=== PATIENT | male | born 1960 | race Caucasian/White ===

== ENCOUNTER 2018-04-04 19:29 | Inpatient (IN) | payer OTHER ==
[~2018-04-04] VITALS: Ht 182.9 cm; Wt 85.0 kg
[~2018-04-04 19:29] MED LIST: Z.0.NO CURRENT MEDS
[2018-04-04 19:31] VITALS: BP 132/74; PULSE 64; RESP 16; TEMP 97.5; O2SAT 100
[2018-04-04] MEDS ORDERED: SODIUM CHLORID 0.9% 500 ML INJ 500 ML IV ONE (19:45)
[2018-04-04] MEDS ORDERED: SODIUM CHLORIDE 0.9% FLUSH 10 ML FLUSH IVF PRN (19:45)
[2018-04-04] MEDS ORDERED: ASPIRIN 81 MG CHEW TAB PO ONE (19:45)
--- NOTE | 2018-04-04 19:49 | PD ---
HPI Chief Complaint: Chest Pain Time Seen by Provider: 19:39 Travel History International Travel<30 days: No Contact w/Intl Traveler<30days: No Traveled to known affect area: No History of Present Illness HPI This is a 58-year-old male who presents to the emergency department with left shoulder pain that started yesterday, constant throughout the day progressing to heaviness in his chest that started this afternoon, radiating to his back between his shoulder blades, constant, severe when he arrived in the emergency department. He reports associated nausea, diaphoresis and shortness of breath. He is otherwise healthy with no past medical history. He does have a 25-pack- year remote smoking history. His father required a stent but he was in his 80s. [facility] Past Medical History Diminished Hearing: No Thyroid Disease: Yes Social History Alcohol Use: No Tobacco Use: No Substance Use: No Allergies-Medications (Allergen,Severity, Reaction): Coded Allergies: No Known Allergies (Verified Allergy, Unknown, 04/04/18) Reported Meds & Prescriptions Reported Meds & Active Scripts Active Reported Lunesta (Eszopiclone) 1 Mg Tab 1 Mg PO HS PRN Levothyroxine (Levothyroxine Sodium) 25 Mcg Tab 25 Mcg PO DAILY Review of Systems Except as stated in HPI: all other systems reviewed are Neg Physical Exam Narrative GENERAL: Uncomfortable appearing. SKIN: Focused skin assessment warm and dry. HEAD: Atraumatic. Normocephalic. EYES: Pupils equal and round. No injection or drainage. ENT: Moist mucous membranes NECK: Trachea midline. CARDIOVASCULAR: Regular rate and rhythm. No murmur appreciated. Symmetric radial pulses. RESPIRATORY: Clear to auscultation. Breath sounds equal bilaterally. GASTROINTESTINAL: Abdomen soft, non-tender, nondistended. MUSCULOSKELETAL: No obvious deformities. NEUROLOGICAL: Awake and alert. No obvious cranial nerve deficits. Moving all extremities. PSYCHIATRIC: Appropriate mood and affect; insight and judgment normal. Data Data Last Documented VS Vital Signs Date Time Temp Pulse Resp B/P (MAP) Pulse Ox O2 Delivery O2 Flow Rate FiO2 04/04/18 21:37 89 20 147/78 (101) 98 Nasal Cannula 2.00 04/04/18 19:31 97.5 Orders Orders Electrocardiogram (04/04/18 19:39) Complete Blood Count With Diff (04/04/18 19:39) Comprehensive Metabolic Panel (04/04/18 19:39) Prothrombin Time / Inr (Pt) (04/04/18 19:39) Act Partial Throm Time (Ptt) (04/04/18 19:39) Troponin I (04/04/18 19:39) Ecg Monitoring (04/04/18 19:39) Bilateral Bp Monitoring (04/04/18 19:39) Iv Access Insert/Monitor (04/04/18 19:39) Oximetry (04/04/18 19:39) Oxygen Administration (04/04/18 19:39) Aspirin Chew (Aspirin Chew) (04/04/18 19:45) Sodium Chloride 0.9% Flush (Ns Flush) (04/04/18 19:45) Nitroglycerin Sl (Nitrostat Sl) (04/04/18 19:45) Sodium Chlorid 0.9% 500 Ml Inj (Ns 500 M (04/04/18 19:45) Chest, Pa & Lat (04/04/18 19:39) Morphine Inj (Morphine Inj) (04/04/18 20:15) Piperacil-Tazo 3.375 Gm Premix (Zosyn 3. (04/04/18 20:45) Type And Screen (04/04/18 20:33) Ct Abd/Pel W Iv Contrast(Rout) (04/04/18 ) Sodium Chlor 0.9% 1000 Ml Inj (Ns 1000 M (04/04/18 21:00) Iohexol 350 Inj (Omnipaque 350 Inj) (04/04/18 21:02) Hydromorphone Pf Inj (Dilaudid Pf Inj) (04/04/18 21:15) Diet Npo (04/05/18 Breakfast) Consult Doron Nfs (04/04/18 ) Admit Order (Ed Use Only) (04/04/18 22:26) Labs Laboratory Tests Test 04/04/18 17:55 White Blood Count 15.8 TH/MM3 Red Blood Count 4.67 MIL/MM3 Hemoglobin 14.3 GM/DL Hematocrit 43.3 % Mean Corpuscular Volume 92.7 FL Mean Corpuscular Hemoglobin 30.7 PG Mean Corpuscular Hemoglobin Concent 33.1 % Red Cell Distribution Width 13.1 % Platelet Count 353 TH/MM3 Mean Platelet Volume 7.8 FL Neutrophils (%) (Auto) 75.6 % Lymphocytes (%) (Auto) 15.0 % Monocytes (%) (Auto) 6.8 % Eosinophils (%) (Auto) 2.0 % Basophils (%) (Auto) 0.6 % Neutrophils # (Auto) 11.9 TH/MM3 Lymphocytes # (Auto) 2.4 TH/MM3 Monocytes # (Auto) 1.1 TH/MM3 Eosinophils # (Auto) 0.3 TH/MM3 Basophils # (Auto) 0.1 TH/MM3 CBC Comment DIFF FINAL Differential Comment Prothrombin Time 10.7 SEC Prothromb Time International Ratio 1.1 RATIO Activated Partial Thromboplast Time 21.2 SEC Blood Urea Nitrogen 25 MG/DL Creatinine 1.62 MG/DL Random Glucose 111 MG/DL Total Protein 7.6 GM/DL Albumin 4.2 GM/DL Calcium Level 9.6 MG/DL Alkaline Phosphatase 54 U/L Aspartate Amino Transf (AST/SGOT) 34 U/L Alanine Aminotransferase (ALT/SGPT) 40 U/L Total Bilirubin 0.6 MG/DL Sodium Level 142 MEQ/L Potassium Level 4.3 MEQ/L Chloride Level 105 MEQ/L Carbon Dioxide Level 25.9 MEQ/L Anion Gap 11 MEQ/L Estimat Glomerular Filtration Rate 44 ML/MIN Troponin I LESS THAN 0.02 NG/ML MDM Medical Decision Making Medical Screen Exam Complete: Yes Emergency Medical Condition: Yes Interpretation(s) Leukocytosis with 75% neutrophils Renal insufficiency Troponin is normal Coags are normal Chest x-ray demonstrates free air under the diaphragm EKG: Normal sinus rhythm with mild ST depression in the inferior leads Differential Diagnosis Acute myocardial infarction, aortic dissection, pancreatitis, perforated viscus Narrative Course This is a 58-year-old male who presents to the emergency department with worsening left shoulder pain and chest discomfort that has been going on for 2 days. He looks very uncomfortable on exam. He was placed in a monitor and IV was established. He was initially treated as a presumed acs and given nitroglycerin, aspirin and morphine. Patient became increasingly uncomfortable. X-ray demonstrated free air under the diaphragm. Case was discussed with Dr. Rice immediately and CT abdomen pelvis was ordered. Patient was seen by general surgery at the bedside. He was given IV Zosyn and was taken to the operating room in the setting of perforated viscus Critical Care Narrative Aggregate critical care time was 40 minutes. Time to perform other separately billable procedures was not included in the critical care time. My time did not include minutes spent treating any other patients simultaneously or on activities that did not directly contribute to the patient's treatment. The services I provided to this patient were to treat and/or prevent clinically significant deterioration that could result in: Disability, I provided critical care services requiring my management, as noted below: Chart data review, documentation time, medication orders and management, vital sign assessments/reviewing monitor data, ordering and reviewing lab tests, ordering and interpreting/reviewing x-rays and diagnostic studies, care of the patient and discussion of the patient with the admitting physicians. Physician Communication Physician Communication Discussed with Dr. Duran and Dr. Rice Admitting Information Admitting Physician Requests: Admit Ana Hay MD Apr 04, 2018 19:49
[2018-04-04 19:57] LABS: AUTOMATED NEUTROPHIL # 11.9 TH/MM3 (1.8-7.7); BASOPHIL # 0.1 TH/MM3 (0-0.2); BASOPHIL % 0.6 % (0.0-2.0); EOSINOPHIL # 0.3 TH/MM3 (0-0.4); HEMATOCRIT 43.3 % (39.0-51.0); HEMOGLOBIN 14.3 GM/DL (13.0-17.0); LYMPHOCYTE # 2.4 TH/MM3 (1.0-4.8); MEAN CELL VOLUME 92.7 FL (80.0-100.0); MEAN CORPUSCULAR HEMOGLOBIN 30.7 PG (27.0-34.0); MEAN CORPUSCULAR HGB CONC 33.1 % (32.0-36.0); MEAN PLATELET VOLUME 7.8 FL (7.0-11.0); MONO % 6.8 % (0.0-8.0); MONOCYTE # 1.1 TH/MM3 (0-0.9); NEUT % 75.6 % (16.0-70.0); PLATELET COUNT 353 TH/MM3 (150-450); RED BLOOD COUNT 4.67 MIL/MM3 (4.50-5.90); RED CELL DISTRIBUTION WIDTH 13.1 % (11.6-17.2); WHITE BLOOD COUNT 15.8 TH/MM3 (4.0-11.0)
[2018-04-04] MEDS: NITROGLYCERIN 0.4 MG SL 25 TABS/BTL SL SCH ×3 (20:01→20:09)
[2018-04-04] MEDS ORDERED: LEVO25TA4 PO (20:07)
[2018-04-04 20:09] LABS: INTERNATIONAL NORMALIZED RATIO 1.1 RATIO; PROTHROMBIN TIME - PATIENT 10.7 SEC (9.8-11.6)
[2018-04-04] MEDS ORDERED: MORPHINE SULFATE 4 MG/ML INJ IV PUSH ONE (20:15)
[2018-04-04] MEDS ORDERED: LUNE1TAB8 PO (20:16)
--- NOTE | 2018-04-04 20:31 | RADRPT ---
EXAM DATE: 04/04/2018 8:00 PM EDT AGE/SEX: 58 years / Male INDICATIONS: Shortness of breath and chest pain. CLINICAL DATA: This is the patient's initial encounter. Patient reports that signs and symptoms have been present for 1 day and indicates a pain score of 6/10. MEDICAL/SURGICAL HISTORY: None. None. COMPARISON: [facility], CHEST SINGLE AP, 03/29/2013. . FINDINGS: There is free intraperitoneal air under the diaphragms. Further evaluation with abdomen and pelvic CT is recommended. Lungs are clear. No effusion. No pneumothorax. Heart size normal. CONCLUSION: Free intraperitoneal air worrisome for perforated viscus. Further evaluation with abdomen and pelvic CT recommended. Findings called to Dr. Hay at the time of dictation. Electronically signed by: Gary Mckeon MD 04/04/2018 8:30 PM EDT
[2018-04-04 20:38] LABS: ALBUMIN 4.2 GM/DL (3.4-5.0); AST (GOT) 34 U/L (15-37); BICARBONATE 25.9 MEQ/L (21.0-32.0); BLOOD UREA NITROGEN 25 MG/DL (7-18); CALCIUM 9.6 MG/DL (8.5-10.1); CHLORIDE 105 MEQ/L (98-107); CREATININE 1.62 MG/DL (0.60-1.30); GLOMERULAR FILTRATION RATE 44 ML/MIN (>89); GLUCOSE,RANDOM 111 MG/DL (74-106); SODIUM (NA) 142 MEQ/L (136-145)
[2018-04-04 20:39] LABS: ALT (GPT) 40 U/L (12-78)
[2018-04-04 20:43] LABS: ALKALINE PHOSPHATASE 54 U/L (45-117); TOTAL BILIRUBIN ADULT 0.6 MG/DL (0.2-1.0); TOTAL PROTEIN 7.6 GM/DL (6.4-8.2); TROPONIN I LESS THAN 0.02 NG/ML (0.02-0.05)
[2018-04-04] MEDS ORDERED: PIPERACIL-TAZO 3.375 GM PREMIX 50 ML IV ONE (20:45)
[2018-04-04 20:56] VITALS: BP 142/70; PULSE 62; RESP 19; O2SAT 96
[2018-04-04] MEDS ORDERED: SODIUM CHLOR 0.9% 1000 ML INJ 1,000 ML IV SCH (21:00)
[2018-04-04] MEDS ORDERED: IOHEXOL 350 MG/ML 10 ML VIAL (for RAD DIAG) IVCONTRAST ONE (21:02)
--- NOTE | 2018-04-04 21:14 | RADRPT ---
EXAM DATE: 04/04/2018 9:01 PM EDT AGE/SEX: 58 years / Male INDICATIONS: Abdominal pain. CLINICAL DATA: This is crampy in the stomach is hard but his colon looks fine millimeters usually: Th ere are is the patient's initial encounter. Patient reports that signs and symptoms have been present for 1 day and indicates a pain score of 10/10. MEDICAL/SURGICAL HISTORY: None. None. ORAL CONTRAST: No oral contrast ingested. RADIATION DOSE: 6.54 CTDI (mGy) COMPARISON: No prior exams available for comparison. TECHNIQUE: Multiple contiguous axial images were obtained through the abdomen and pelvis following b olus infusion of 92 ml Omnipaque 350 (iohexol) nonionic water-soluble contrast as a single exam dos e. No oral contrast ingested. Using automated exposure control and adjustment of the mA and/or kV ac cording to patient size, radiation dose was kept as low as reasonably achievable to obtain optimal di agnostic quality images. DICOM format image data is available electronically for review and comparis on. FINDINGS: Lung bases are clear. There is a large amount of free intraperitoneal air. No acute findings in the l iver, spleen, adrenals, kidneys or pancreas. No gallstones or biliary ductal dilatation. The stomach is distended presumably with ingested food. I do not identify a definite source of free a ir. The stomach is difficult to evaluate due to it being filled with ingested debris. There is some m ild inflammatory change around the colon at the splenic flexure. Perforated diverticulitis is in the differential diagnosis. No acute bony abnormality. CONCLUSION: Large amount of free intraperitoneal air. The stomach is distended with ingested debris and difficult to evaluate. There is some questionable inflammatory change around the colon at the splenic flexure, possibly a perforated diverticulitis. No discrete abscess. Electronically signed by: Gary Mckeon MD 04/04/2018 9:13 PM EDT
[2018-04-04] MEDS ORDERED: HYDROmorphone HCL PF 2 MG/ML VIAL IV PUSH ONE (21:15)
[2018-04-04 21:37] VITALS: BP 147/78; PULSE 89; RESP 20; O2SAT 98
--- NOTE | 2018-04-04 21:46 | PD ---
Physical Exam Time Seen by Provider: 21:15 Narrative Please refer to my attending documentation for details surrounding the patient' s current visit. Data Data Last Documented VS Vital Signs Date Time Temp Pulse Resp B/P (MAP) Pulse Ox O2 Delivery O2 Flow Rate FiO2 04/04/18 21:37 89 20 147/78 (101) 98 Nasal Cannula 2.00 04/04/18 19:31 97.5 Orders Orders Electrocardiogram (04/04/18 19:39) Complete Blood Count With Diff (04/04/18 19:39) Comprehensive Metabolic Panel (04/04/18 19:39) Prothrombin Time / Inr (Pt) (04/04/18 19:39) Act Partial Throm Time (Ptt) (04/04/18 19:39) Troponin I (04/04/18 19:39) Ecg Monitoring (04/04/18 19:39) Bilateral Bp Monitoring (04/04/18 19:39) Iv Access Insert/Monitor (04/04/18 19:39) Oximetry (04/04/18 19:39) Oxygen Administration (04/04/18 19:39) Aspirin Chew (Aspirin Chew) (04/04/18 19:45) Sodium Chloride 0.9% Flush (Ns Flush) (04/04/18 19:45) Nitroglycerin Sl (Nitrostat Sl) (04/04/18 19:45) Sodium Chlorid 0.9% 500 Ml Inj (Ns 500 M (04/04/18 19:45) Chest, Pa & Lat (04/04/18 19:39) Morphine Inj (Morphine Inj) (04/04/18 20:15) Piperacil-Tazo 3.375 Gm Premix (Zosyn 3. (04/04/18 20:45) Type And Screen (04/04/18 20:33) Ct Abd/Pel W Iv Contrast(Rout) (04/04/18 ) Sodium Chlor 0.9% 1000 Ml Inj (Ns 1000 M (04/04/18 21:00) Iohexol 350 Inj (Omnipaque 350 Inj) (04/04/18 21:02) Hydromorphone Pf Inj (Dilaudid Pf Inj) (04/04/18 21:15) Diet Npo (04/05/18 Breakfast) Labs Laboratory Tests Test 04/04/18 17:55 White Blood Count 15.8 TH/MM3 Red Blood Count 4.67 MIL/MM3 Hemoglobin 14.3 GM/DL Hematocrit 43.3 % Mean Corpuscular Volume 92.7 FL Mean Corpuscular Hemoglobin 30.7 PG Mean Corpuscular Hemoglobin Concent 33.1 % Red Cell Distribution Width 13.1 % Platelet Count 353 TH/MM3 Mean Platelet Volume 7.8 FL Neutrophils (%) (Auto) 75.6 % Lymphocytes (%) (Auto) 15.0 % Monocytes (%) (Auto) 6.8 % Eosinophils (%) (Auto) 2.0 % Basophils (%) (Auto) 0.6 % Neutrophils # (Auto) 11.9 TH/MM3 Lymphocytes # (Auto) 2.4 TH/MM3 Monocytes # (Auto) 1.1 TH/MM3 Eosinophils # (Auto) 0.3 TH/MM3 Basophils # (Auto) 0.1 TH/MM3 CBC Comment DIFF FINAL Differential Comment Prothrombin Time 10.7 SEC Prothromb Time International Ratio 1.1 RATIO Activated Partial Thromboplast Time 21.2 SEC Blood Urea Nitrogen 25 MG/DL Creatinine 1.62 MG/DL Random Glucose 111 MG/DL Total Protein 7.6 GM/DL Albumin 4.2 GM/DL Calcium Level 9.6 MG/DL Alkaline Phosphatase 54 U/L Aspartate Amino Transf (AST/SGOT) 34 U/L Alanine Aminotransferase (ALT/SGPT) 40 U/L Total Bilirubin 0.6 MG/DL Sodium Level 142 MEQ/L Potassium Level 4.3 MEQ/L Chloride Level 105 MEQ/L Carbon Dioxide Level 25.9 MEQ/L Anion Gap 11 MEQ/L Estimat Glomerular Filtration Rate 44 ML/MIN Troponin I LESS THAN 0.02 NG/ML [facility] Medical Record Reviewed: Yes Supervised Visit with ESPERANZA: No Narrative Course Patient is in significant pain. His is very concerned about this. The patient is unable to hold still. He cannot get comfortable. He will be given 1 mg of Dilaudid at this time. CT imaging has been complete but result is not yet read. 2124 CT imaging results. I discussed them with Dr. Rice, surgeon content manager. He request the patient be n.p.o. and he will come and evaluate the patient at bedside. I have explained this to the patient and his . They are in agreement with this plan of care. Patient does report moderate improvement in his pain. Condition: Stable Tracy Chilel Apr 04, 2018 21:46
[2018-04-04] MEDS: SODIUM CHLOR 0.9% 1000 ML INJ 1,000 ML IV SCH (22:43)
[2018-04-04] MEDS ORDERED: ACETAMINOPHEN 325 MG TAB PO PRN (22:45)
[2018-04-04] MEDS ORDERED: RESP: ALBUTEROL 2.5 MG/IPRATROPIUM 0.5 MG NEB (PRN) INH (22:45)
[2018-04-04] MEDS ORDERED: MAGNESIUM HYDROXIDE SUSP 30 ML CUP PO PRN (22:45)
[2018-04-04] MEDS ORDERED: NURSING INFORMATION XX SCH (22:45)
[2018-04-04] MEDS ORDERED: SENNOSIDES 8.6 MG TAB PO PRN (22:45)
[2018-04-04] MEDS ORDERED: SODIUM CHLORIDE 0.9% FLUSH 10 ML FLUSH IV FLUSH PRN (22:45)
[2018-04-04] MEDS ORDERED: BISACODYL 10 MG SUPP RECTAL PRN (22:45)
[2018-04-04] MEDS ORDERED: CHLORHEXIDINE GLUCONATE 2 % 1 PACK (2 CLOTHS) TOP PRN (22:45)
[2018-04-04] MEDS: PANTOPRAZOLE SODIUM 40 MG VIAL IV PUSH SCH (22:45)
[2018-04-04] MEDS ORDERED: ESZOPICLONE 1 MG TAB PO PRN (22:45)
[2018-04-04] MEDS ORDERED: ENOXAPARIN SODIUM 40 MG/0.4 ML SYRINGE SQ SCH (22:45)
[2018-04-04] MEDS ORDERED: ONDANSETRON HCL 4 MG/2 ML VIAL IV PUSH PRN (22:45)
[2018-04-04] MEDS ORDERED: LACTULOSE SYRUP 20 GM/30 ML CUP PO PRN (22:45)
--- NOTE | 2018-04-04 22:57 | HHI.HP ---
[facility] Service Critical Care Medicine Primary Care Physician Odin Yap DO Admission Diagnosis perforated viscus Diagnosis: Travel History International Travel<30 Days: No Contact w/Intl Traveler <30 Da: No Traveled to Known Affected Are: No History of Present Illness 58-year-old male presents with left shoulder pain that started yesterday, constant throughout the day progressing to heaviness in his chest that started this afternoon, radiating to his back between his shoulder blades. He reports associated nausea, diaphoresis and shortness of breath. He is otherwise healthy with no past medical history. The chest x-ray obtained in the emergency department showed large volume of free air under diaphragm, and the CT of the abdomen and pelvis confirmed Large amount of free intraperitoneal air. He was taken emergently to the operating room for diagnostic laparoscopy and abdominal washout with a laparoscopic repair of gastric ulcer anterior wall by Dr. Rice. Review of Systems Constitutional: COMPLAINS OF: Diaphoretic episodes, DENIES: Fatigue, Fever, Weight gain, Weight loss, Chills, Dizziness, Change in appetite, Night Sweats Endocrine: DENIES: Heat/cold intolerance, Polydipsia, Polyuria, Polyphagia Eyes: DENIES: Blurred vision, Diplopia, Eye inflammation, Eye pain, Vision loss , Photosensitivity, Double Vision Ears, nose, mouth, throat: DENIES: Tinnitus, Hearing loss, Vertigo, Nasal discharge, Oral lesions, Throat pain, Hoarseness, Ear Pain, Running Nose, Epistaxis, Sinus Pain, Toothache, Odynophagia Respiratory: COMPLAINS OF: Shortness of breath, DENIES: Apneas, Cough, Snoring , Wheezing, Hemoptysis, Sputum production Cardiovascular: COMPLAINS OF: Chest pain, DENIES: Palpitations, Syncope, Dyspnea on Exertion, PND, Lower Extremity Edema, Orthopnea, Claudication Gastrointestinal: COMPLAINS OF: Abdominal pain, Nausea, DENIES: Black stools, Bloody stools, Constipation, Diarrhea, Vomiting, Difficulty Swallowing, Anorexia Genitourinary: DENIES: Sexual dysfunction, Urinary frequency, Urinary incontinence, Urgency, Hematuria, Dysuria, Nocturia, Penile Discharge, Testicular Pain, Testicular Swelling Musculoskeletal: DENIES: Joint pain, Muscle aches, Stiffness, Joint Swelling, Back pain, Neck pain Integumentary: DENIES: Abnormal pigmentation, Nail changes, Pruritus, Rash Hematologic/lymphatic: DENIES: Bruising, Lymphadenopathy Immunologic/allergic: DENIES: Eczema, Urticaria Neurologic: DENIES: Abnormal gait, Headache, Localized weakness, Paresthesias, Seizures, Speech Problems, Tremor, Poor Balance Psychiatric: DENIES: Anxiety, Confusion, Mood changes, Depression, Hallucinations, Agitation, Suicidal Ideation, Homicidal Ideation, Delusions Past Family Social History Allergies: Coded Allergies: No Known Allergies (Verified Allergy, Unknown, 04/04/18) Past Medical History Insomnia Hypothyroid Past Surgical History None Reported Medications Reported Meds & Active Scripts Active Reported Lunesta (Eszopiclone) 1 Mg Tab 1 Mg PO HS PRN Levothyroxine (Levothyroxine Sodium) 25 Mcg Tab 25 Mcg PO DAILY Active Ordered Medications Current Medications Medications (Trade) Dose Ordered Sig/Eri Route PRN Reason Start Time Stop Time Status Last Admin Dose Admin Sodium Chloride (NS Flush) 2 ml UNSCH PRN IVF FLUSH AFTER USING IV ACCESS 04/04/18 19:45 Eszopiclone (Lunesta) 1 mg HS PRN PO INSOMNIA 04/04/18 22:45 Levothyroxine Sodium (Synthroid) 25 mcg DAILY@0700 PO 04/05/18 07:00 Sodium Chloride 1,000 ml @ 124 mls/hr Q8H4M IV 04/04/18 22:43 Sodium Chloride (NS Flush) 2 ml UNSCH PRN IV FLUSH FLUSH AFTER USING IV ACCESS 04/04/18 22:45 Sodium Chloride (NS Flush) 2 ml BID IV FLUSH 04/05/18 09:00 Acetaminophen (Tylenol) 650 mg Q6H PRN PO PAIN 1-5 AND/OR FEVER >101F 04/04/18 22:45 Hydromorphone HCl (Dilaudid Pf Inj) 1 mg Q4H PRN IV PUSH PAIN SCALE 6 TO 10 04/04/18 22:45 Pantoprazole Sodium (Protonix Inj) 40 mg Q12H IV PUSH 04/04/18 22:45 Ondansetron HCl (Zofran Inj) 4 mg Q6H PRN IV PUSH NAUSEA OR VOMITING 04/04/18 22:45 Albuterol/ Ipratropium (Duoneb Neb) 1 ampule Q2HR NEB PRN INH WHEEZING 04/04/18 22:45 Miscellaneous Information ([facility]) 1 [id number] XX 04/04/18 22:45 Chlorhexidine Gluconate (Chlorhexidine 2% Cloth) 3 pack Taper DAILY@04 TOP 04/05/18 04:00 04/01/19 03:59 Chlorhexidine Gluconate (Chlorhexidine 2% Cloth) 3 pack UNSCH PRN TOP HYGIENIC CARE 04/04/18 22:45 Senna/Docusate Sodium (Morelia-Colace) 1 tab BID PO 04/05/18 09:00 Magnesium Hydroxide (Milk Of Magnesia Liq) 30 ml Q12H PRN PO Mild constipation 04/04/18 22:45 Sennosides (Senokot) 17.2 mg Q12H PRN PO Moderate constipation 04/04/18 22:45 Bisacodyl (Dulcolax Supp) 10 mg DAILY PRN RECTAL SEVERE CONSITIPATION 04/04/18 22:45 Lactulose (Lactulose Liq) 30 ml DAILY PRN PO SEVERE CONSITIPATION 04/04/18 22:45 Piperacillin Sod/ Tazobactam Sod 100 ml @ 200 mls/hr Q6H IV 04/05/18 03:00 04/05/18 04:56 Fluconazole/ Sodium Chloride 200 ml @ 100 mls/hr Q24H IV 04/04/18 23:00 04/07/18 00:59 Acetaminophen 100 ml @ 400 mls/hr Q6H IV 04/05/18 02:30 Family History No family history significant of early coronary artery disease Social History Remote history of smoking, no history of alcohol or illicit drug abuse Physical Exam Vital Signs Vital Signs Date Time Temp Pulse Resp B/P (MAP) Pulse Ox O2 Delivery O2 Flow Rate FiO2 04/04/18 21:37 89 20 147/78 (101) 98 Nasal Cannula 2.00 04/04/18 20:56 96 2.00 04/04/18 20:56 62 19 142/70 (94) 96 Nasal Cannula 2.00 04/04/18 20:56 96 Nasal Cannula 2.00 04/04/18 19:31 97.5 64 16 132/74 (93) 100 Physical Exam GENERAL: Well-nourished, well-developed patient. SKIN: Warm and dry. HEAD: Normocephalic. EYES: No scleral icterus. No injection or drainage. NECK: Supple, trachea midline. No JVD or lymphadenopathy. CARDIOVASCULAR: Regular rate and rhythm without murmurs, gallops, or rubs. RESPIRATORY: Breath sounds equal bilaterally. No accessory muscle use. GASTROINTESTINAL: Abdomen soft, non-tender, nondistended. MUSCULOSKELETAL: No cyanosis, or edema. BACK: Nontender without obvious deformity. NEURO EXAM: GCS: 15 Mental Status: The patient is alert and oriented to person, place, and time with normal speech. Laboratory Laboratory Tests Test 04/04/18 17:55 White Blood Count 15.8 Red Blood Count 4.67 Hemoglobin 14.3 Hematocrit 43.3 Mean Corpuscular Volume 92.7 Mean Corpuscular Hemoglobin 30.7 Mean Corpuscular Hemoglobin Concent 33.1 Red Cell Distribution Width 13.1 Platelet Count 353 Mean Platelet Volume 7.8 Neutrophils (%) (Auto) 75.6 Lymphocytes (%) (Auto) 15.0 Monocytes (%) (Auto) 6.8 Eosinophils (%) (Auto) 2.0 Basophils (%) (Auto) 0.6 Neutrophils # (Auto) 11.9 Lymphocytes # (Auto) 2.4 Monocytes # (Auto) 1.1 Eosinophils # (Auto) 0.3 Basophils # (Auto) 0.1 CBC Comment DIFF FINAL Differential Comment Prothrombin Time 10.7 Prothromb Time International Ratio 1.1 Activated Partial Thromboplast Time 21.2 Blood Urea Nitrogen 25 Creatinine 1.62 Random Glucose 111 Total Protein 7.6 Albumin 4.2 Calcium Level 9.6 Alkaline Phosphatase 54 Aspartate Amino Transf (AST/SGOT) 34 Alanine Aminotransferase (ALT/SGPT) 40 Total Bilirubin 0.6 Sodium Level 142 Potassium Level 4.3 Chloride Level 105 Carbon Dioxide Level 25.9 Anion Gap 11 Estimat Glomerular Filtration Rate 44 Troponin I LESS THAN 0.02 Result Diagram: 04/04/18175404/04/181754 Imaging Last 24 hours Impressions Chest X-Ray 04/04/18 193 Signed Impressions: CONCLUSION: Free intraperitoneal air worrisome for perforated viscus. Further evaluation abdomen and pelvic CT recommended. Findings called to Dr. Hay at the time of dictation. Septic Shock Reassessment Septic shock perfusion: reassessment completed Caprini VTE Risk Assessment Caprini VTE Risk Assessment: Mod/High Risk (score >= 2) Caprini Risk Assessment Model Point Value = 1 Point Value = 2 Point Value = 3 Point Value = 5 Age 41-60 Minor surgery BMI > 25 kg/m2 Swollen legs Varicose veins or History of unexplained or recurrent spontaneous Oral contraceptives or hormone replacement Sepsis (< 1 month) Serious lung disease, including pneumonia (< 1 month) Abnormal pulmonary function Acute myocardial infarction Congestive heart failure (< 1 month) History of inflammatory bowel disease Medical patient at bed rest Age 61-74 Arthroscopic surgery Major open surgery (> 45 min) Laparoscopic surgery (> 45 min) Malignancy Confined to bed (> 72 hours) Immobilizing plaster cast Central venous access Age >= 75 History of VTE Family history of VTE Factor V Leiden Prothrombin [id number] Lupus anticoagulant Anticardiolipin antibodies Elevated serum homocysteine Heparin-induced thrombocytopenia Other congenital or acquired thrombophilia Stroke (< 1 month) Elective arthroplasty Hip, pelvis, or leg fracture Acute spinal cord injury (< 1 month) Prophylaxis Regimen Total Risk Factor Score Risk Level Prophylaxis Regimen 0-1 Low Early ambulation 2 Moderate Order ONE of the following: *Sequential Compression Device (SCD) *Heparin 5000 units SQ BID 3-4 Higher Order ONE of the following medications: *Heparin 5000 units SQ TID *Enoxaparin/Lovenox 40 mg SQ daily (WT < 150 kg, CrCl > 30 mL/min) *Enoxaparin/Lovenox 30 mg SQ daily (WT < 150 kg, CrCl > 10-29 mL/min) *Enoxaparin/Lovenox 30 mg SQ BID (WT < 150 kg, CrCl > 30 mL/min) AND/OR *Sequential Compression Device (SCD) 5 or more Highest Order ONE of the following medications: *Heparin 5000 units SQ TID (Preferred with Epidurals) *Enoxaparin/Lovenox 40 mg SQ daily (WT < 150 kg, CrCl > 30 mL/min) *Enoxaparin/Lovenox 30 mg SQ daily (WT < 150 kg, CrCl > 10-29 mL/min) *Enoxaparin/Lovenox 30 mg SQ BID (WT < 150 kg, CrCl > 30 mL/min) AND *Sequential Compression Device (SCD) Assessment and Plan Assessment and Plan Perforated viscus -Emergent OR for perforated gastric ulcer repair -Protonix IV twice daily -Empiric Zosyn -Diflucan -IV fluid -Further management per general surgery Dr. Dwayne Soto as needed Hypothyroid -Levothyroxine DVT GI prophylaxis -Teds SCDs -Subcu Lovenox -Protonix IV twice daily Critical Care: The total critical care time was 35 minutes. Time to perform other separately billable procedures was not included in the critical care time. Anthony Duran MD Apr 04, 2018 10:57 pm
[2018-04-04] MEDS ORDERED: FLUCONAZOLE 400 MG PREMIX BAG 200 ML IV SCH (23:00)
[2018-04-04 23:32] VITALS: O2SAT 98
[2018-04-04] MEDS ORDERED: fentaNYL CITRATE 250 MCG/5 ML AMP ONE (23:58)
[2018-04-04] MEDS ORDERED: MIDAZOLAM HCL 2 MG/2 ML VIAL ONE (23:59)
[2018-04-05] VITALS (16 sets, daily range): BP systolic 124–154; BP diastolic 58–87; PULSE 52–99; RESP 10–22; TEMP 97.6–99; O2SAT 96–100
[2018-04-05] MEDS ORDERED: BUPIVACAINE/EPINEPHRINE 0.5% PF 30 ML VIAL ONE (00:28)
[2018-04-05] MEDS: ACETAMINOPHEN 1000 MG/100 ML 100 ML IV SCH ×4 (02:30→19:49)
--- NOTE | 2018-04-05 02:36 | HHI.PR ---
cc: Gary Rice MD Immediate Post Op Note Procedure Date: Apr 05, 2018 Pre Op Diagnosis: (1) Peritoneal cavity free air (2) Perforated abdominal viscus (3) Elevated white blood cell count (4) Acute abdomen Post Op Diagnosis: (1) Status post laparoscopic surgery (2) Perforated gastric ulcer (3) Peritoneal cavity free air (4) Acute abdomen (5) Elevated white blood cell count (6) Perforated abdominal viscus Surgeon: Gary Rice Research Assistant Professor(s): Please refer to our records Procedure: Diagnostic laparoscopy Abdominal washout Laparoscopic repair of gastric ulcer anterior wall Specimen(s) removed: None Estimated blood loss: Minimal Anesthesia: General Drains: VIKI IVF Patient to: PACU Patient Condition: Good Implant/Devices: SEE IMPLANT LOG (if applicable) Date/Time of Procedure: SEE SURGICAL CARE RECORD Gary Rice MD Apr 05, 2018 02:36
[2018-04-05 03:46] LABS: HEMATOCRIT 40.5 % (39.0-51.0); HEMOGLOBIN 13.8 GM/DL (13.0-17.0); MEAN CELL VOLUME 94.5 FL (80.0-100.0); MEAN CORPUSCULAR HEMOGLOBIN 32.1 PG (27.0-34.0); MEAN PLATELET VOLUME 7.7 FL (7.0-11.0); PLATELET COUNT 262 TH/MM3 (150-450); RED BLOOD COUNT 4.28 MIL/MM3 (4.50-5.90); WHITE BLOOD COUNT 10.1 TH/MM3 (4.0-11.0)
[2018-04-05 03:52] LABS: PROTHROMBIN TIME - PATIENT 10.6 SEC (9.8-11.6)
[2018-04-05] MEDS: CHLORHEXIDINE GLUCONATE 2 % 1 PACK (2 CLOTHS) TOP SCH (04:00)
[2018-04-05 04:13] LABS: ALBUMIN 3.7 GM/DL (3.4-5.0); ALT (GPT) 47 U/L (12-78); AST (GOT) 48 U/L (15-37); BICARBONATE 26.2 MEQ/L (21.0-32.0); BLOOD UREA NITROGEN 25 MG/DL (7-18); CHLORIDE 111 MEQ/L (98-107); CREATININE 1.43 MG/DL (0.60-1.30); GLOMERULAR FILTRATION RATE 51 ML/MIN (>89); GLUCOSE,RANDOM 145 MG/DL (74-106); MAGNESIUM 1.7 MG/DL (1.5-2.5); PHOSPHORUS 2.7 MG/DL (2.5-4.9); SODIUM (NA) 145 MEQ/L (136-145)
[2018-04-05 04:23] LABS: BANDS 15 % (0-6); LYMPHOCYTES 1 % (9-44); NEUTROPHIL # MANUAL DIFF 9.9 TH/MM3 (1.8-7.7); POLYS (SEG NEUTROPHILS) 83 % (16-70); TOXIC VACUOLATION PRESENT (NONE SEEN)
[2018-04-05 04:28] LABS: ALKALINE PHOSPHATASE 46 U/L (45-117); TOTAL BILIRUBIN ADULT 0.4 MG/DL (0.2-1.0); TOTAL PROTEIN 6.6 GM/DL (6.4-8.2)
[2018-04-05] MEDS: PIPERACIL-TAZO 4.5 GM PREMIX 100 ML IV SCH ×4 (04:56→20:10)
[2018-04-05] MEDS: SODIUM CHLOR 0.9% 1000 ML INJ 1,000 ML IV SCH ×2 (06:22→08:08)
[2018-04-05] MEDS: LEVOTHYROXINE SODIUM 25 MCG TAB PO SCH (06:23)
[2018-04-05] MEDS: DOCUSATE SODIUM 50 MG/SENNA 8.6 MG TAB PO SCH ×2 (08:06→18:34)
[2018-04-05] MEDS: SODIUM CHLORIDE 0.9% FLUSH 10 ML FLUSH IV FLUSH SCH ×2 (08:07→21:00)
--- NOTE | 2018-04-05 08:43 | HHI.CCPN ---
Subjective Remarks/Hospital Course 58-year-old male presents with left shoulder pain that started yesterday, constant throughout the day progressing to heaviness in his chest that started this afternoon, radiating to his back between his shoulder blades. He reports associated nausea, diaphoresis and shortness of breath. He is otherwise healthy with no past medical history. The chest x-ray obtained in the emergency department showed large volume of free air under diaphragm, and the CT of the abdomen and pelvis confirmed Large amount of free intraperitoneal air. He was taken emergently to the operating room for diagnostic laparoscopy and abdominal washout with a laparoscopic repair of gastric ulcer anterior wall by Dr. Rice. Subjective 04/05: Resting in bed in no acute distress. Denies pain. Left shoulder pain has resolved. On room air Objective Vital Signs Date Time Temp Pulse Resp B/P (MAP) Pulse Ox O2 Delivery O2 Flow Rate FiO2 04/05/18 08:00 99 Nasal Cannula 2.00 04/05/18 08:00 79 04/05/18 08:00 99.0 17 140/72 (94) Intake and Output 04/05/18 04/05/18 04/06/18 08:00 16:00 00:00 Intake Total 1000 ml Output Total 90 ml Balance 910 ml Result Diagram: 04/05/18 0331 04/05/18 0331 Other Results Microbiology Date/Time Source Procedure Growth Status 04/04/18 23:35 Blood Peripheral Aerobic Blood Culture Pending Received 04/04/18 23:35 Blood Peripheral Anaerobic Blood Culture Pending Received Imaging Last Impressions Chest X-Ray 04/04/18 1939 Signed Impressions: CONCLUSION: Free intraperitoneal air worrisome for perforated viscus. Further evaluation abdomen and pelvic CT recommended. Findings called to Dr. Hay at the time of dictation. Abdomen/Pelvis CT 04/04/18 0000 Signed Impressions: CONCLUSION: Large amount of free intraperitoneal air. The stomach is distended with ingeste d debris and difficult to evaluate. There is some questionable inflammatory fredis nge around the colon at the splenic flexure, possibly a perforated diverticulit is. No discrete abscess. Procedures Diagnostic laparoscopy with repair of gastric ulcer/anterior wall by Dr. Rice Objective Remarks GENERAL: 58-year-old male resting in bed in no acute distress SKIN: Warm and dry. HEAD: Normocephalic. EYES: No scleral icterus. No injection or drainage. NECK: Supple, trachea midline. No JVD or lymphadenopathy. CARDIOVASCULAR: Regular rate and rhythm without murmurs, gallops, or rubs. RESPIRATORY: Breath sounds equal bilaterally. No accessory muscle use. GASTROINTESTINAL: Abdomen soft, non-tender, nondistended. Incision with 5 Band- Aids midline clean dry and intact. VIKI with minimal drainage above the umbilicus MUSCULOSKELETAL: No significant peripheral edema. NEURO EXAM: Cranial nerves II through XII grossly intact. Strength is equal and symmetric. Normal sensation Urinary Catheter: Yes Assessment to: Continue Garcia insert reason: Prolonged Immobilization Vascular Central Line Catheter: No Assessment to: Continue A/P Assessment and Plan Neuro/Psych: Insomnia IV Ofirmev 1 g IV every 6 hours scheduled per general surgery Hydromorphone 0.5-1 mg every 4 hours as needed pain 1 through 10 Resume eszopiclone 1 mg at night when clinically indicated for insomnia CV: Currently normal saline at 100 cc an hour Not requiring vasopressors and/or antihypertensives Lactic acid within normal limits Resp: Nasal cannula to maintain saturations greater than or equal to 92% Incentive spirometry while awake As needed albuterol aerosols every 2 hours as needed pain GI: Postop day #1 diagnostic laparoscopy secondary to gastric ulcer/anterior wall with perforated viscus by Dr. Rice Elevated AST Advance diet per general surgery Pantoprazole 40 mill grams IV twice daily Bowel regimen when okay with general surgery VIKI with minimal output. : No indication for Garcia catheter Endo: Hypothyroidism Sliding scale insulin if clinically indicated to maintain euglycemia Resume levothyroxine 25 mcg daily Renal: Acute kidney injury Creatinine 1.63-1.41. Monitor BMP daily and follow trends. Heme: CBC within normal limits No indication for transfusion of blood products at this time ID: Currently on piperacillin/tazobactam in fluconazole day #2 Blood cultures 2 04/04 pending FEN: Replace electrolytes as clinically indicated MSK: PT evaluate and treat Access -Utilize peripheral IV. Central line if indicated Prophylaxis -GI -pantoprazole -DVT -SCD/pharmacological prophylaxis when okay with general surgery Level 2 follow-up P Stable from critical care medicine standpoint. Assign care to hospitalist in a.m. 04/06 Fito Sloan MD Apr 05, 2018 08:43
[2018-04-05] MEDS ORDERED: RESP: ALBUTEROL 2.5 MG/3 ML NEB (PRN) NEB (08:45)
[2018-04-05] MEDS ORDERED: HYDROmorphone HCL PF 2 MG/ML VIAL IV PUSH PRN (09:00)
[2018-04-05] MEDS: FLUCONAZOLE 400 MG PREMIX BAG 200 ML IV SCH (09:25)
[2018-04-05] MEDS: PANTOPRAZOLE SODIUM 40 MG VIAL IV PUSH SCH ×2 (09:25→21:47)
--- NOTE | 2018-04-05 09:45 | MB ---
cc: Gary Rice MD DATE: 04/04/2018 REASON FOR CONSULTATION: Free air. HISTORY OF PRESENT ILLNESS: This is a 58-year-old gentleman who for 1 day, had experienced some chest wall pain. Today, he went on his boat and spent the day on the boat. He says he complained of just an uneasy feeling in his chest for most of the day. He went out and had dinner and then felt like he was having some kind of cardiac issue. He came into the emergency room. A chest x-ray was done, which showed a fair amount of free air. CT scan showed a massive amount of free air. Surgery was consulted for free air. The patient states he has had a colonoscopy about 2-[address] Johnson and it was clean. He does not take any medications. PAST MEDICAL HISTORY: Negative for any chronic medical problems. MEDICATIONS: He does not take any routine medications, specifically no ibuprofen or nonsteroidal. ALLERGIES: NOT ALLERGIC TO ANYTHING. REVIEW OF SYSTEMS: No cardiac or neurologic problems. No , no endocrine problems. Never had any ulcer disease in the past. PHYSICAL EXAMINATION: GENERAL: He is a 58-year-old gentleman who looks his stated age. NECK: Supple. LUNGS: Clear. HEART: Regular rate. ABDOMEN: Exquisitely tender throughout. No surgical scars. Decreased bowel sounds. EXTREMITIES: Moves all extremities well. No clubbing, cyanosis or edema. NEUROLOGIC: He is alert and oriented, somewhat concerned with his medical condition. LABORATORY DATA: White count is 15,000, H and H 14 and 43. Coags normal. Chemistry shows a little bit of renal insufficiency and dehydration. IMAGING: He had a chest x-ray which showed free air. Interestingly, he came into the emergency room earlier this month complaining of some chest wall pain. Chest x-ray was normal. A CT scan done shows massive amount of free air, some inflammation around the splenic flexure, questionable diverticular ulcer disease. ASSESSMENT: A 58-year-old gentleman with a massive amount of free air, may be diverticular disease, may be ulcer disease. PLAN: Diagnostic laparoscopy, possible repair of ulcer versus colostomy. This was all discussed with the patient. He appeared to understand. We will proceed to the operating room as soon as time is available. Gary Rice MD JDB/TL , 11:17 PM , 09:43 AM
--- NOTE | 2018-04-05 10:28 | MP ---
cc: Gary Rice MD DATE OF OPERATION: DATE OF PROCEDURE: 04/05/2018. PREOPERATIVE DIAGNOSIS: Perforated viscus. POSTOPERATIVE DIAGNOSIS: Perforated gastric ulcer. PROCEDURE PERFORMED: 1. Diagnostic laparoscopy. 2. Abdominal washout. 3. Laparoscopic repair of gastric ulcer anterior wall of the body of the stomach. 4. Placement of intra-abdominal drain. ANESTHESIA: General. SURGEON: Dr. Rice. INDICATIONS FOR PROCEDURE: This is a pleasant 58-year-old gentleman who has had a couple day history of abdominal pain. He was found to have a fair amount of free air. Unknown etiology. Plans were made for a diagnostic laparoscopy and proceeding according to the intraoperative findings. DESCRIPTION OF PROCEDURE: The patient was taken to the operating room and placed in the supine position. After anesthesia, his abdomen was prepped with Betadine. He was already given antibiotics. We made an incision just below the umbilicus. Veress needle was inserted. The saline load test was performed. The abdomen was insufflated to 15 mmHg. A 5 mm trocar was introduced. We then placed another 5 mm below the xiphoid as a fair amount of purulent material can be seen around the liver and a second working port in between the 2 previously placed ports. We then inspected the abdomen and there was a fair amount of pus around the gallbladder, the liver. Did check the duodenum. I do not see any evidence of an ulcer. The ascending colon was somewhat dilated, appendix is normal. We checked down in the pelvis, there was a fair amount of purulent material which was irrigated. Checked the colon and it is somewhat contracted, does have some stool present, but no inflammation, no perforation is noted. Along the anterior wall of the stomach, there is 0.5 cm circular defect consistent with a gastric ulcer that was perforated. We then irrigated copiously. Then, using a 3-0 silk stitch, we were able to place 3 stitches to close and reapproximate the gastric defect. I then placed a piece of omentum somewhat of a Doyle patch over the surgical repair of the gastric ulcer. This was then copiously irrigated again as he had a fair amount of purulent material around the spleen as well. Again, I checked the duodenum. There was no evidence of an ulcer. The gallbladder is normal appearing. We then irrigate with about 5 liters of saline. The irrigating solution was removed. Then, at the mid port, we placed a René drain and placed it just superior to the ulcer repair and was secured to the skin with 3-0 nylon. The 2 other port sites were closed with a 4-0 Vicryl. A sterile bandage was applied. The patient tolerated the procedure well and had no immediate postop complications. I discussed the intraoperative findings with the by phone and the number listed on the face sheet. Gary Rice MD JDB/TL , 02:41 AM , 10:25 AM
--- NOTE | 2018-04-05 13:37 | EKG ---
Date Performed: 04/04/2018 Time Performed: 19:32:59 PTAGE: 58 years EKG: Sinus rhythm NORMAL ECG Since PREVIOUS TRACING , no significant change noted PREVIOUS TRACIN03/29/2013 12.39 DOCTOR: Jake Arriola Interpretating Date/Time 04/05/2018 13:37:12
--- NOTE | 2018-04-05 14:07 | HHI.PR ---
Subjective Subjective Notes Patient feels much better than preop. His postoperative pain is minimal. His dry mouth and throat. Objective Vitals/I&O Vital Signs Date Time Temp Pulse Resp B/P (MAP) Pulse Ox O2 Delivery O2 Flow Rate FiO2 04/05/18 12:00 98.4 90 10 124/58 (80) 100 04/05/18 12:00 Room Air 04/05/18 08:00 2.00 Labs Laboratory Tests Test 04/04/18 17:55 04/04/18 23:59 04/05/18 03:31 White Blood Count 15.8 10.1 Red Blood Count 4.67 4.28 Hemoglobin 14.3 13.8 Hematocrit 43.3 40.5 Mean Corpuscular Volume 92.7 94.5 Mean Corpuscular Hemoglobin 30.7 32.1 Mean Corpuscular Hemoglobin Concent 33.1 34.0 Red Cell Distribution Width 13.1 13.0 Platelet Count 353 262 Mean Platelet Volume 7.8 7.7 Neutrophils (%) (Auto) 75.6 Lymphocytes (%) (Auto) 15.0 Monocytes (%) (Auto) 6.8 Eosinophils (%) (Auto) 2.0 Basophils (%) (Auto) 0.6 Neutrophils # (Auto) 11.9 Lymphocytes # (Auto) 2.4 Monocytes # (Auto) 1.1 Eosinophils # (Auto) 0.3 Basophils # (Auto) 0.1 CBC Comment DIFF FINAL AUTO DIFF Differential Comment FINAL DIFF MANUAL Prothrombin Time 10.7 10.6 Prothromb Time International Ratio 1.1 1.0 Activated Partial Thromboplast Time 21.2 23.8 Blood Urea Nitrogen 25 25 Creatinine 1.62 1.43 Random Glucose 111 145 Total Protein 7.6 6.6 Albumin 4.2 3.7 Calcium Level 9.6 8.0 Alkaline Phosphatase 54 46 Aspartate Amino Transf (AST/SGOT) 34 48 Alanine Aminotransferase (ALT/SGPT) 40 47 Total Bilirubin 0.6 0.4 Sodium Level 142 145 Potassium Level 4.3 4.1 Chloride Level 105 111 Carbon Dioxide Level 25.9 26.2 Anion Gap 11 8 Estimat Glomerular Filtration Rate 44 51 Troponin I LESS THAN 0.02 Nasal Screen MRSA (PCR) MRSA NOT DETECTED Differential Total Cells Counted 100 Neutrophils % (Manual) 83 Band Neutrophils % 15 Lymphocytes % 1 Eosinophils % 1 Neutrophils # (Manual) 9.9 Toxic Vacuolation PRESENT Platelet Estimate NORMAL Platelet Morphology Comment NORMAL Phosphorus Level 2.7 Magnesium Level 1.7 Lactic Acid Level 1.2 Date/Time Source Procedure Growth Status 04/04/18 23:35 Blood Peripheral Aerobic Blood Culture - Preliminary NO GROWTH IN 1 DAY Resulted 04/04/18 23:35 Blood Peripheral Anaerobic Blood Culture - Preliminary NO GROWTH IN 1 DAY Resulted Abdomen: Non-distended, Non-tender, Other (Incisions covered with Band-Aids. Drain with minimal murky fluid output.) Extremities: No edema, SCD's on A/P Assessment and Plan Less than 24 hours status post laparoscopic repair perforated gastric ulcer. Patient is very stable and otherwise healthy. Transfer to floor. Okay for ice chips and sips of water and routine meds with water. Nayan Patrick MD Apr 05, 2018 14:07
[2018-04-05] MEDS ORDERED: PHENOL 1.4% SOLN 180 ML BTL MT PRN (20:00)
[2018-04-05] MEDS: MENTHOL LOZENGE BUCCAL PRN ×2 (20:10→21:48)
[2018-04-06 00:27] VITALS: BP 128/70; PULSE 60; RESP 18; TEMP 97.3; O2SAT 96
[2018-04-06] MEDS: SODIUM CHLOR 0.9% 1000 ML INJ 1,000 ML IV SCH ×2 (01:34→10:17)
[2018-04-06] MEDS: ACETAMINOPHEN 1000 MG/100 ML 100 ML IV SCH ×4 (01:34→21:59)
[2018-04-06] MEDS: CHLORHEXIDINE GLUCONATE 2 % 1 PACK (2 CLOTHS) TOP SCH (04:00)
[2018-04-06] MEDS: PIPERACIL-TAZO 4.5 GM PREMIX 100 ML IV SCH ×3 (04:10→17:44)
[2018-04-06] MEDS: LEVOTHYROXINE SODIUM 25 MCG TAB PO SCH (05:39)
[2018-04-06 07:41] LABS: AUTOMATED NEUTROPHIL # 7.9 TH/MM3 (1.8-7.7); BASOPHIL % 0.2 % (0.0-2.0); EOSINOPHIL # 0.1 TH/MM3 (0-0.4); EOSINOPHIL % 1.6 % (0.0-4.0); HEMATOCRIT 34.5 % (39.0-51.0); HEMOGLOBIN 11.7 GM/DL (13.0-17.0); LYMPH % 9.9 % (9.0-44.0); MEAN CELL VOLUME 94.8 FL (80.0-100.0); MEAN CORPUSCULAR HEMOGLOBIN 32.1 PG (27.0-34.0); MEAN CORPUSCULAR HGB CONC 33.9 % (32.0-36.0); MONO % 5.7 % (0.0-8.0); MONOCYTE # 0.5 TH/MM3 (0-0.9); NEUT % 82.6 % (16.0-70.0); PLATELET COUNT 201 TH/MM3 (150-450); RED BLOOD COUNT 3.64 MIL/MM3 (4.50-5.90); RED CELL DISTRIBUTION WIDTH 13.4 % (11.6-17.2); WHITE BLOOD COUNT 9.6 TH/MM3 (4.0-11.0)
[2018-04-06 08:00] VITALS: BP 124/65; PULSE 66; RESP 18; TEMP 97.7; O2SAT 94
[2018-04-06 08:11] LABS: ALBUMIN 2.6 GM/DL (3.4-5.0); ALKALINE PHOSPHATASE 38 U/L (45-117); ALT (GPT) 31 U/L (12-78); AST (GOT) 24 U/L (15-37); BICARBONATE 20.5 MEQ/L (21.0-32.0); BLOOD UREA NITROGEN 22 MG/DL (7-18); CALCIUM 7.8 MG/DL (8.5-10.1); CHLORIDE 112 MEQ/L (98-107); CREATININE 1.17 MG/DL (0.60-1.30); GLOMERULAR FILTRATION RATE 64 ML/MIN (>89); GLUCOSE,RANDOM 89 MG/DL (74-106); MAGNESIUM 2.2 MG/DL (1.5-2.5); PHOSPHORUS 2.4 MG/DL (2.5-4.9); SODIUM (NA) 143 MEQ/L (136-145); TOTAL BILIRUBIN ADULT 0.6 MG/DL (0.2-1.0); TOTAL PROTEIN 5.8 GM/DL (6.4-8.2)
[2018-04-06] MEDS: SODIUM CHLORIDE 0.9% FLUSH 10 ML FLUSH IV FLUSH SCH ×2 (08:23→22:00)
[2018-04-06] MEDS: PANTOPRAZOLE SODIUM 40 MG VIAL IV PUSH SCH ×2 (08:36→22:00)
[2018-04-06 09:28] VITALS: O2SAT 96
--- NOTE | 2018-04-06 09:38 | HHI.PR ---
cc: Gary Manjarrez MD Subjective Subjective Notes DAILY PROGRESS NOTE FOR SURGICAL ATTENDING, DR. GARY MANJARREZ "Can I get the IV in my LEFT hand out?" Can I have my NG tube removed Objective Vitals/I&O Vital Signs Date Time Temp Pulse Resp B/P (MAP) Pulse Ox O2 Delivery O2 Flow Rate FiO2 04/06/18 09:28 96 21 04/06/18 00:27 97.3 60 18 128/70 (89) 04/05/18 21:30 Room Air 04/05/18 08:00 2.00 Labs Laboratory Tests Test 04/06/18 06:55 White Blood Count 9.6 Red Blood Count 3.64 Hemoglobin 11.7 Hematocrit 34.5 Mean Corpuscular Volume 94.8 Mean Corpuscular Hemoglobin 32.1 Mean Corpuscular Hemoglobin Concent 33.9 Red Cell Distribution Width 13.4 Platelet Count 201 Mean Platelet Volume 8.0 Neutrophils (%) (Auto) 82.6 Lymphocytes (%) (Auto) 9.9 Monocytes (%) (Auto) 5.7 Eosinophils (%) (Auto) 1.6 Basophils (%) (Auto) 0.2 Neutrophils # (Auto) 7.9 Lymphocytes # (Auto) 1.0 Monocytes # (Auto) 0.5 Eosinophils # (Auto) 0.1 Basophils # (Auto) 0.0 CBC Comment DIFF FINAL Differential Comment Blood Urea Nitrogen 22 Creatinine 1.17 Random Glucose 89 Total Protein 5.8 Albumin 2.6 Calcium Level 7.8 Phosphorus Level 2.4 Magnesium Level 2.2 Alkaline Phosphatase 38 Aspartate Amino Transf (AST/SGOT) 24 Alanine Aminotransferase (ALT/SGPT) 31 Total Bilirubin 0.6 Sodium Level 143 Potassium Level 3.5 Chloride Level 112 Carbon Dioxide Level 20.5 Anion Gap 11 Estimat Glomerular Filtration Rate 64 Date/Time Source Procedure Growth Status 04/04/18 23:35 Blood Peripheral Aerobic Blood Culture - Preliminary NO GROWTH IN 1 DAY Resulted 04/04/18 23:35 Blood Peripheral Anaerobic Blood Culture - Preliminary NO GROWTH IN 1 DAY Resulted Radiology Last Impressions Chest X-Ray 04/04/18 1939 Signed Impressions: CONCLUSION: Free intraperitoneal air worrisome for perforated viscus. Further evaluation abdomen and pelvic CT recommended. Findings called to Dr. Hay at the time of dictation. Abdomen/Pelvis CT 04/04/18 0000 Signed Impressions: CONCLUSION: Large amount of free intraperitoneal air. The stomach is distended with ingeste d debris and difficult to evaluate. There is some questionable inflammatory fredis nge around the colon at the splenic flexure, possibly a perforated diverticulit is. No discrete abscess. Cardiovascular: Regular Lungs: Clear Abdomen: Other (lap sites c/d/i; NGT to LIWS ), Post-op tenderness (VIKI in place ) Extremities: No edema A/P Problem List: (1) Perforated gastric ulcer ICD Codes: K25.5 - Chronic or unspecified gastric ulcer with perforation Status: Acute (2) Status post laparoscopic surgery ICD Codes: Z98.890 - Other specified postprocedural states Status: Acute Assessment and Plan 58 year old male POD2 lap repair of gastric ulcer -DC NGT -Start clear liquids -VIKI to bulb suction -Continue Zosyn/Diflucan -Hopefully home in the next 24-48 hours Attending Statement NOTE FOR SURGICAL ATTENDING, DR. GARY MANAJRREZ I agree with above assessment and plan. The exam, history, and the medical decision-making described in the above note were completed with the assistance of the mid-level provider. I reviewed and agree with the findings presented. I attest that I had a [id number] encounter with the patient on the same day, and personally performed and documented my assessment and findings in the medical record. The following services were provided during this hospital visit: Chart data review, vital sign assessments/reviewing monitor data Review of consultations notes if present. Medication orders/review and/or management Ordering and/or reviewing lab tests Ordering and/or interpreting/reviewing x-rays and/or diagnostic studies Care of the patient and discussion of the patient with the care team Documentation time To help prompt me to consider important information that might be impacting today's encounter and assessment, Information from prior notes written by myself or my colleagues may have been "brought forward/copy and pasted" into today's note. Problem Qualifiers (1) Perforated gastric ulcer: Qualified Codes: K25.1 - Acute gastric ulcer with perforation Pham Mcnair/Bookkeeping Manager CODING SUPPORT SPECIALIST Apr 06, 2018 09:38 Gary Manjarrez MD Apr 07, 2018 11:00
[2018-04-06] MEDS: FLUCONAZOLE 400 MG PREMIX BAG 200 ML IV SCH (09:40)
[2018-04-06] MEDS ORDERED: LEVA500T33 PO (10:31)
[2018-04-06] MEDS ORDERED: NORC5TAB PO (10:31)
[2018-04-06] MEDS ORDERED: DIFL200T PO (10:31)
[2018-04-06] MEDS ORDERED: PROT40TA PO (10:31)
--- NOTE | 2018-04-06 11:55 | HHI.PR ---
Subjective Remarks Patient says he is feeling all right. Denies any chest pain shortness of breath. Denies nausea or vomiting. Flatus but no bowel movement. Objective Vital Signs Date Time Temp Pulse Resp B/P (MAP) Pulse Ox O2 Delivery O2 Flow Rate FiO2 04/06/18 09:28 96 21 04/06/18 00:27 97.3 60 18 128/70 (89) 96 04/05/18 21:30 Room Air 04/05/18 20:42 97.6 53 16 136/67 (90) 96 04/05/18 20:00 97.7 54 21 145/66 (92) 100 04/05/18 20:00 100 Room Air 04/05/18 18:00 58 04/05/18 16:50 96 04/05/18 16:00 98.8 77 22 129/65 (86) 98 04/05/18 16:00 61 04/05/18 16:00 22 04/05/18 14:00 59 04/05/18 12:00 98.4 90 10 124/58 (80) 100 04/05/18 12:00 100 Room Air 04/05/18 12:00 52 I/O 04/05/18 04/05/18 04/05/18 04/06/18 04/06/18 04/06/18 06:59 14:59 22:59 06:59 14:59 22:59 Intake Total 1000 ml 940 ml 680 ml Output Total 490 ml 445 ml 615 ml 250 ml Balance 510 ml 495 ml 65 ml -250 ml Intake Oral 0 ml 240 ml 480 ml IV Total 1000 ml 700 ml 200 ml Output Urine Total 400 ml 400 ml 600 ml 250 ml Drainage Total 80 ml 45 ml 15 ml Estimated Blood Loss 10 ml # Voids 3 Result Diagram: 04/06/18 0655 04/06/18 0655 Objective Remarks GENERAL: Patient sitting up in chair bedside. Appears comfortable. SKIN: Warm and dry. HEAD: Normocephalic. EYES: No scleral icterus. No injection or drainage. NECK: Supple, trachea midline. No JVD. CARDIOVASCULAR: Regular rate and rhythm without murmurs, gallops, or rubs. RESPIRATORY: Breath sounds equal bilaterally. No accessory muscle use. GASTROINTESTINAL: Abdomen soft, non-tender, nondistended. MUSCULOSKELETAL: No cyanosis, or edema. BACK: Nontender without obvious deformity. No CVA tenderness. A/P Assessment and Plan //Postop day 2 diagnostic laparoscopy with repair of perforated viscus by Dr. Rice. = Leukocytosis resolved. = Blood cultures negative 2 days. = Continue on Zosyn, Diflucan for now. Postsurgical management as per surgical service. Diet as per surgical service. //Prophylaxis. As per surgical service. Discharge Planning Pending surgical clearance. Washington Stoner MD Apr 06, 2018 11:55
[2018-04-06 12:00] VITALS: BP 128/87; PULSE 62; RESP 16; TEMP 97.4; O2SAT 99
[2018-04-06 16:00] VITALS: BP 131/75; PULSE 46; RESP 18; TEMP 97.2; O2SAT 99
[2018-04-06 20:00] VITALS: BP 133/60; PULSE 66; RESP 16; TEMP 98; O2SAT 98
[2018-04-06] MEDS: HYDROmorphone HCL PF 2 MG/ML VIAL IV PUSH PRN (22:09)
[2018-04-07] VITALS: BP 129/64; PULSE 65; RESP 16; TEMP 98.1; O2SAT 97
[2018-04-07] MEDS: PIPERACIL-TAZO 4.5 GM PREMIX 100 ML IV SCH ×2 (01:08→05:47)
[2018-04-07] MEDS: ACETAMINOPHEN 1000 MG/100 ML 100 ML IV SCH ×2 (02:28→07:39)
[2018-04-07] MEDS: SODIUM CHLOR 0.9% 1000 ML INJ 1,000 ML IV SCH (02:28)
[2018-04-07] MEDS: HYDROmorphone HCL PF 2 MG/ML VIAL IV PUSH PRN (02:28)
[2018-04-07] MEDS: CHLORHEXIDINE GLUCONATE 2 % 1 PACK (2 CLOTHS) TOP SCH (03:13)
[2018-04-07 04:00] VITALS: BP 122/57; PULSE 68; RESP 16; TEMP 98.3; O2SAT 93
[2018-04-07] MEDS: LEVOTHYROXINE SODIUM 25 MCG TAB PO SCH (05:47)
[2018-04-07 08:00] VITALS: BP 124/58; PULSE 69; RESP 18; TEMP 97.9; O2SAT 96
[2018-04-07] MEDS: SODIUM CHLORIDE 0.9% FLUSH 10 ML FLUSH IV FLUSH SCH (08:12)
[2018-04-07] MEDS: PANTOPRAZOLE SODIUM 40 MG VIAL IV PUSH SCH (08:16)
[2018-04-07] MEDS: FLUCONAZOLE 400 MG PREMIX BAG 200 ML IV SCH (08:23)
[2018-04-07 10:30] LABS: AUTOMATED NEUTROPHIL # 5.3 TH/MM3 (1.8-7.7); BASOPHIL % 0.6 % (0.0-2.0); EOSINOPHIL # 0.4 TH/MM3 (0-0.4); EOSINOPHIL % 5.8 % (0.0-4.0); HEMATOCRIT 37.7 % (39.0-51.0); HEMOGLOBIN 12.6 GM/DL (13.0-17.0); LYMPH % 14.5 % (9.0-44.0); MEAN CELL VOLUME 94.1 FL (80.0-100.0); MEAN CORPUSCULAR HEMOGLOBIN 31.5 PG (27.0-34.0); MEAN CORPUSCULAR HGB CONC 33.5 % (32.0-36.0); MONO % 5.9 % (0.0-8.0); MONOCYTE # 0.4 TH/MM3 (0-0.9); NEUT % 73.2 % (16.0-70.0); PLATELET COUNT 258 TH/MM3 (150-450); RED CELL DISTRIBUTION WIDTH 13.1 % (11.6-17.2); WHITE BLOOD COUNT 7.2 TH/MM3 (4.0-11.0)
[2018-04-07 11:06] LABS: ALBUMIN 2.8 GM/DL (3.4-5.0); BICARBONATE 24.6 MEQ/L (21.0-32.0); CALCIUM 8.2 MG/DL (8.5-10.1); CREATININE 1.25 MG/DL (0.60-1.30); MAGNESIUM 2.1 MG/DL (1.5-2.5)
[2018-04-07 11:07] LABS: PHOSPHORUS 3.1 MG/DL (2.5-4.9)
[2018-04-07 11:53] VITALS: O2SAT 98
[2018-04-07 12:00] VITALS: BP 150/70; PULSE 66; RESP 16; TEMP 97.8; O2SAT 99
--- NOTE | 2018-04-07 12:17 | HHI.PR ---
cc: Gary Manjarrez MD Subjective Subjective Notes DAILY PROGRESS NOTE FOR SURGICAL ATTENDING, DR. GARY MANJARREZ Doing well No issues overnight Objective Vitals/I&O Vital Signs Date Time Temp Pulse Resp B/P (MAP) Pulse Ox O2 Delivery O2 Flow Rate FiO2 04/07/18 11:53 98 21 04/07/18 08:00 97.9 69 18 124/58 (80) 04/05/18 21:30 Room Air 04/05/18 08:00 2.00 Labs Laboratory Tests Test 04/07/18 08:39 White Blood Count 7.2 Red Blood Count 4.00 Hemoglobin 12.6 Hematocrit 37.7 Mean Corpuscular Volume 94.1 Mean Corpuscular Hemoglobin 31.5 Mean Corpuscular Hemoglobin Concent 33.5 Red Cell Distribution Width 13.1 Platelet Count 258 Mean Platelet Volume 8.0 Neutrophils (%) (Auto) 73.2 Lymphocytes (%) (Auto) 14.5 Monocytes (%) (Auto) 5.9 Eosinophils (%) (Auto) 5.8 Basophils (%) (Auto) 0.6 Neutrophils # (Auto) 5.3 Lymphocytes # (Auto) 1.0 Monocytes # (Auto) 0.4 Eosinophils # (Auto) 0.4 Basophils # (Auto) 0.0 CBC Comment DIFF FINAL Differential Comment Blood Urea Nitrogen 16 Creatinine 1.25 Random Glucose 70 Albumin 2.8 Calcium Level 8.2 Phosphorus Level 3.1 Magnesium Level 2.1 Sodium Level 142 Potassium Level 3.4 Chloride Level 108 Carbon Dioxide Level 24.6 Anion Gap 9 Estimat Glomerular Filtration Rate 59 Date/Time Source Procedure Growth Status 04/04/18 23:35 Blood Peripheral Aerobic Blood Culture - Preliminary NO GROWTH IN 3 DAYS Resulted 04/04/18 23:35 Blood Peripheral Anaerobic Blood Culture - Preliminary NO GROWTH IN 3 DAYS Resulted Radiology Last Impressions Chest X-Ray 04/04/18 193 Signed Impressions: CONCLUSION: Free intraperitoneal air worrisome for perforated viscus. Further evaluation abdomen and pelvic CT recommended. Findings called to Dr. Hay at the time of dictation. Abdomen/Pelvis CT 04/04/18 0000 Signed Impressions: CONCLUSION: Large amount of free intraperitoneal air. The stomach is distended with ingeste d debris and difficult to evaluate. There is some questionable inflammatory fredis nge around the colon at the splenic flexure, possibly a perforated diverticulit is. No discrete abscess. Cardiovascular: Regular Lungs: Clear Abdomen: Other (lap sites c/d/i' VIKI mildly cloudy ) Extremities: No edema A/P Problem List: (1) Perforated gastric ulcer ICD Codes: K25.5 - Chronic or unspecified gastric ulcer with perforation Status: Acute (2) Status post laparoscopic surgery ICD Codes: Z98.890 - Other specified postprocedural states Status: Acute Assessment and Plan 58 year old male POD3 lap repair of gastric ulcer -Advance diet -VIKI to bulb suction ---patient to go home with drain -Transition to PO antibiotics -Rx on chart -GS clear for DC after lunch -Follow up at 0930 -Okay to shower--- pat incisions dry Attending Statement NOTE FOR SURGICAL ATTENDING, DR. GARY MANJARREZ I agree with above assessment and plan. The exam, history, and the medical decision-making described in the above note were completed with the assistance of the mid-level provider. I reviewed and agree with the findings presented. I attest that I had a [id number] encounter with the patient on the same day, and personally performed and documented my assessment and findings in the medical record. The following services were provided during this hospital visit: Chart data review, vital sign assessments/reviewing monitor data Review of consultations notes if present. Medication orders/review and/or management Ordering and/or reviewing lab tests Ordering and/or interpreting/reviewing x-rays and/or diagnostic studies Care of the patient and discussion of the patient with the care team Documentation time To help prompt me to consider important information that might be impacting today's encounter and assessment, Information from prior notes written by myself or my colleagues may have been "brought forward/copy and pasted" into today's note. Problem Qualifiers (1) Perforated gastric ulcer: Qualified Codes: K25.1 - Acute gastric ulcer with perforation Pham Mcnair/Hydropulper Operator ELLIE Apr 07, 2018 12:17 Gary Manjarrez MD Apr 07, 2018 17:21
--- NOTE | 2018-04-07 12:31 | HHI.PR ---
Subjective Remarks Patient says he is comfortable. Denies any chest pain shortness of breath. Denies nausea or vomiting. Reports abdominal pain controlled. Objective Vital Signs Date Time Temp Pulse Resp B/P (MAP) Pulse Ox O2 Delivery O2 Flow Rate FiO2 04/07/18 11:53 98 21 04/07/18 08:00 97.9 69 18 124/58 (80) 96 04/07/18 04:00 98.3 68 16 122/57 (78) 93 04/07/18 00:00 98.1 65 16 129/64 (85) 97 04/06/18 20:08 21 04/06/18 20:00 98.0 66 16 133/60 (84) 98 04/06/18 16:00 97.2 46 18 131/75 (93) 99 I/O 04/06/18 04/06/18 04/06/18 04/07/18 04/07/18 04/07/18 07:00 15:00 23:00 07:00 15:00 23:00 Intake Total 680 ml 400 ml 720 ml 1440 ml Output Total 615 ml 250 ml 150 ml Balance 65 ml 150 ml 720 ml 1290 ml Intake Oral 480 ml 620 ml 240 ml IV Total 200 ml 400 ml 100 ml 1200 ml Output Urine Total 600 ml 250 ml 100 ml Drainage Total 15 ml 50 ml # Voids 3 3 2 # Bowel Movements 1 Result Diagram: 04/07/1883804/07/1839 Objective Remarks GENERAL: Patient sitting up in bed, standing in room. Appears comfortable. SKIN: Warm and dry. HEAD: Normocephalic. EYES: No scleral icterus. No injection or drainage. NECK: Supple, trachea midline. No JVD. CARDIOVASCULAR: Regular rate and rhythm without murmurs, gallops, or rubs. RESPIRATORY: Breath sounds equal bilaterally. No accessory muscle use. GASTROINTESTINAL: Abdomen soft, non-tender, nondistended. MUSCULOSKELETAL: No cyanosis, or edema. VIKI drain with serous drainage. BACK: Nontender without obvious deformity. No CVA tenderness. A/P Assessment and Plan //Postop day 3 diagnostic laparoscopy with repair of perforated viscus by Dr. Rice. = Leukocytosis resolved. = Blood cultures negative 2 days. = Continue on Zosyn, Diflucan for now. Postsurgical management as per surgical service. Diet as per surgical service. = Cleared by general surgery for discharge. Follow-up with general surgery as outpatient. antiBiotics as per general surgery. //Prophylaxis. As per surgical service. Discharge Planning Discharge home as per general surgery. Washington Stoner MD Apr 07, 2018 12:31
--- NOTE | 2018-04-07 12:36 | HHI.DS ---
Discharge Summary Admission Date Apr 04, 2018 at 22:29 Discharge Date: Apr 07, 2018 Admitting Diagnosis perforated viscus (1) Perforated gastric ulcer ICD Code: K25.5 - Chronic or unspecified gastric ulcer with perforation Status: Acute (2) Elevated white blood cell count ICD Code: D72.829 - Elevated white blood cell count, unspecified (3) Acute abdomen ICD Code: R10.0 - Acute abdomen (4) Peritoneal cavity free air ICD Code: K66.8 - Other specified disorders of peritoneum Procedures Diagnostic laparoscopy with repair of gastric ulcer/anterior wall by Dr. Rice Brief History - From Admission 58-year-old male presents with left shoulder pain that started yesterday, constant throughout the day progressing to heaviness in his chest that started this afternoon, radiating to his back between his shoulder blades. He reports associated nausea, diaphoresis and shortness of breath. He is otherwise healthy with no past medical history. The chest x-ray obtained in the emergency department showed large volume of free air under diaphragm, and the CT of the abdomen and pelvis confirmed Large amount of free intraperitoneal air. He was taken emergently to the operating room for diagnostic laparoscopy and abdominal washout with a laparoscopic repair of gastric ulcer anterior wall by Dr. Rice. CBC/BMP: 04/07/18 0839 04/07/18 0839 Significant Findings Laboratory Tests Test 04/04/18 17:55 04/04/18 23:59 04/05/18 03:31 04/06/18 06:55 White Blood Count 15.8 TH/MM3 (4.0-11.0) Neutrophils (%) (Auto) 75.6 % (16.0-70.0) 82.6 % (16.0-70.0) Neutrophils # (Auto) 11.9 TH/MM3 (1.8-7.7) 7.9 TH/MM3 (1.8-7.7) Monocytes # (Auto) 1.1 TH/MM3 (0-0.9) Activated Partial Thromboplast Time 21.2 SEC (24.3-30.1) 23.8 SEC (24.3-30.1) Blood Urea Nitrogen 25 MG/DL (7-18) 25 MG/DL (7-18) 22 MG/DL (7-18) Creatinine 1.62 MG/DL (0.60-1.30) 1.43 MG/DL (0.60-1.30) Random Glucose 111 MG/DL (74-106) 145 MG/DL (74-106) Estimat Glomerular Filtration Rate 44 ML/MIN (>89) 51 ML/MIN (>89) 64 ML/MIN (>89) Troponin I LESS THAN 0.02 NG/ML Red Blood Count 4.28 MIL/MM3 (4.50-5.90) 3.64 MIL/MM3 (4.50-5.90) Neutrophils % (Manual) 83 % (16-70) Band Neutrophils % 15 % (0-6) Lymphocytes % 1 % (9-44) Neutrophils # (Manual) 9.9 TH/MM3 (1.8-7.7) Toxic Vacuolation PRESENT (NONE SEEN) Calcium Level 8.0 MG/DL (8.5-10.1) 7.8 MG/DL (8.5-10.1) Aspartate Amino Transf (AST/SGOT) 48 U/L (15-37) Chloride Level 111 MEQ/L (98-107) 112 MEQ/L (98-107) Hemoglobin 11.7 GM/DL (13.0-17.0) Hematocrit 34.5 % (39.0-51.0) Total Protein 5.8 GM/DL (6.4-8.2) Albumin 2.6 GM/DL (3.4-5.0) Phosphorus Level 2.4 MG/DL (2.5-4.9) Alkaline Phosphatase 38 U/L (45-117) Carbon Dioxide Level 20.5 MEQ/L (21.0-32.0) Test 04/07/18 08:39 Red Blood Count 4.00 MIL/MM3 (4.50-5.90) Hemoglobin 12.6 GM/DL (13.0-17.0) Hematocrit 37.7 % (39.0-51.0) Neutrophils (%) (Auto) 73.2 % (16.0-70.0) Eosinophils (%) (Auto) 5.8 % (0.0-4.0) Random Glucose 70 MG/DL (74-106) Albumin 2.8 GM/DL (3.4-5.0) Calcium Level 8.2 MG/DL (8.5-10.1) Potassium Level 3.4 MEQ/L (3.5-5.1) Chloride Level 108 MEQ/L (98-107) Estimat Glomerular Filtration Rate 59 ML/MIN (>89) Imaging Last Impressions Chest X-Ray 04/04/18 1939 Signed Impressions: CONCLUSION: Free intraperitoneal air worrisome for perforated viscus. Further evaluation abdomen and pelvic CT recommended. Findings called to Dr. Hay at the time of dictation. Abdomen/Pelvis CT 04/04/18 0000 Signed Impressions: CONCLUSION: Large amount of free intraperitoneal air. The stomach is distended with ingeste d debris and difficult to evaluate. There is some questionable inflammatory fredis nge around the colon at the splenic flexure, possibly a perforated diverticulit is. No discrete abscess. Hospital Course Patient presented with leukocytosis and abdominal pain. Perforated viscus on imaging as above. General surgery was consulted and patient underwent laparoscopic repair. Please see report. Patient is managed on broad-spectrum antibiotics with improvement. Patient is to discharge home on antibiotics as per general surgery. Follow-up with general surgery as outpatient. VIKI drain still inpatient, which patient will monitor as per general surgery recommendations. Follow with general surgery as outpatient For problem based summary from most recent progress note, please see below. //Postop day 3 diagnostic laparoscopy with repair of perforated viscus by Dr. Rice. = Leukocytosis resolved. = Blood cultures negative 2 days. = Continue on Zosyn, Diflucan for now. Postsurgical management as per surgical service. Diet as per surgical service. = Cleared by general surgery for discharge. Follow-up with general surgery as outpatient. antiBiotics as per general surgery. //Prophylaxis. As per surgical service. Discharge Planning Discharge home as per general surgery. Pt Condition on Discharge: Good Discharge Disposition: Discharge Home Discharge Time: > 30 minutes Discharge Instructions DIET: Follow Instructions for: As Tolerated, No Restrictions Activities you can perform: Regular-No Restrictions, See Additionl Instruction Activities to Avoid: Lifting/Bending, Strenuous Activity Follow up Referrals: PCP Follow-up - 1 Week Surgical - 04/09/18 with Gary Rice MD Appt set for April 09 at 0930 New Medications: Fluconazole (Diflucan) 200 Mg Tab 200 MG PO DAILY for Infection for 7 Days, #7 TAB 0 Refills Hydrocodone-Acetaminophen ([place]) 5 Mg-325 Mg Tab 1 TAB PO Q6H PRN for PAIN, #25 TAB 0 Refills Levofloxacin (Levaquin) 500 Mg Tablet 500 MG PO DAILY for Infection for 7 Days, #7 TAB 0 Refills Pantoprazole (Protonix) 40 Mg Tab 40 MG PO DAILY PRN for BID for 60 Days, #60 TAB 2 Refills Continued Medications: Eszopiclone (Lunesta) 1 Mg Tab 1 MG PO HS PRN for INSOMNIA, TAB 0 Refills Levothyroxine (Levothyroxine) 25 Mcg Tab 25 MCG PO DAILY for Thyroid, #30 TAB 0 Refills Washington Stoner MD Apr 07, 2018 12:36
[2018-04-07] MEDS ORDERED: AMOXICILLIN/CLAVULANATE K 875 MG TAB PO SCH (21:00)
[2018-04-08] MEDS ORDERED: FLUCONAZOLE 200 MG TAB PO SCH (09:00)
== END 2018-04-07 15:23 | disposition home or self-care (01) | DRG 327 ==
LOC: NEPE 19:29 → NEDA 22:29 → N03A 23:52 → N03B 04-05 15:17 → N07B 04-05 20:27
PROVIDERS: ADMIT Internal Medicine; ATTEND Internal Medicine
PROC: 0DU647Z Supplement Stomach with Autologous Tissue Substitute, Percutaneous Endoscopic Approach (ICD-10-PCS; principal; 2018-04-05)
PROC: 0W9F40Z Drainage of Abdominal Wall with Drainage Device, Percutaneous Endoscopic Approach (ICD-10-PCS; 2018-04-05)
PROC: 3E1M38Z Irrigation of Peritoneal Cavity using Irrigating Substance, Percutaneous Approach (ICD-10-PCS; 2018-04-05)
DX: K25.1 Acute gastric ulcer with perforation (principal); N17.9 Acute kidney failure, unspecified; K66.8 Other specified disorders of peritoneum; E03.9 Hypothyroidism, unspecified; D72.829 Elevated white blood cell count, unspecified; G47.00 Insomnia, unspecified; K59.00 Constipation, unspecified; Z87.891 Personal history of nicotine dependence; R07.89 Other chest pain; R10.0 Acute abdomen; M25.512 Pain in left shoulder
CPT/HCPCS: 71046; 74177; 80053; 80069; 83605; 83735; 84100; 84484; 85007; 85025; 85027; 85610; 85730; 86850; 86900; 86901; 87040; 87641; 93005; 94150; 96361; 96365; 96366; 96375; C9113; J0131; J1170; J1450; J2250; J2270; J2543; J3010; J7030; J7040; Q9967